=== PATIENT | male | born 1980 | race African-American/Black ===

== ENCOUNTER 2022-04-07 15:35 | Emergency (ER) | payer MEDICAID ==
[~2022-04-07] VITALS: Ht 195.6 cm; Wt 111.1 kg
--- NOTE | 2022-04-07 16:06 | NUR ---
[email or web address], medical screening exam in progress
[2022-04-07] MEDS ORDERED: ACETAMINOPHEN 325 MG TABLET ONE (16:13)
[2022-04-07] MEDS ORDERED: IBUPROFEN 400 MG TABLET ONE (16:14)
[2022-04-07] MEDS ORDERED: ACETAMINOPHEN 325 MG TABLET PO ONE (16:15)
[2022-04-07] MEDS ORDERED: IBUPROFEN 400 MG TABLET PO ONE (16:15)
[2022-04-07] MEDS ORDERED: PROPOFOL 200 MG/20 ML BOTTLE ONE (16:55)
[2022-04-07] MEDS ORDERED: FENTANYL CITRATE 100 MCG/2 ML AMPUL ONE (16:55)
[2022-04-07] MEDS ORDERED: FENTANYL CITRATE 100 MCG/2 ML AMPUL IV ONE (17:00)
[2022-04-07] MEDS ORDERED: PROPOFOL 200 MG/20 ML BOTTLE IV ONE ×2 (17:00→17:30)
--- NOTE | 2022-04-07 17:15 | NUR ---
Pt is awake, verbally responsive, able to move x4 extrimities, Ra o2 sat WNL.
--- NOTE | 2022-04-07 17:34 | NUR ---
Patient is resting comfortably in bed, speaking w/ friend at the bedside.
--- NOTE | 2022-04-07 18:16 | NUR ---
Pt denies nausea and requested dinner. dinner tray provided.
--- NOTE | 2022-04-07 18:44 | NUR ---
IV removed. Catheter intact and site benign. Pressure and 4x4 gauze applied to site. No bleeding noted.
[2022-04-07 18:45] VITALS: BP 144/87
--- NOTE | 2022-04-07 18:46 | NUR ---
Patient discharged to home in stable condition. Written and verbal after care instructions given. Patient verbalizes understanding of instructions. Stressed follow up or return to ER for worsening s/s.
== END 2022-04-07 18:46 | disposition home or self-care (01) ==
LOC: ER 15:35
DX: S43.014A Anterior dislocation of right humerus, initial encounter (principal); X50.9XXA Other and unspecified overexertion or strenuous movements or postures, initial encounter; Y93.89 Activity, other specified; Y92.511 Restaurant or cafe as the place of occurrence of the external cause; M25.511 Pain in right shoulder; Z87.448 Personal history of other diseases of urinary system
CPT/HCPCS: 99285; 23650; 73030 ×2; 99152; J3010; A4663; G0500; J3490